=== PATIENT | female | born 1945 | race Asian ===

== ENCOUNTER 2016-06-25 19:56 | Inpatient (IN) | payer MEDICARE, OTHER ==
[~2016-06-25] VITALS: Ht 157.5 cm; Wt 47.6 kg
[2016-06-25] MEDS ORDERED: EPINEPHrine HCL 1 MG/1 ML AMP SC ONE (20:45)
[2016-06-25] MEDS ORDERED: FAMOTIDINE (10MG/ML) 2ML VL IV ONE (20:45)
[2016-06-25] MEDS ORDERED: SODIUM CHLORIDE 0.9% 500 ML IV ONE (20:45)
[2016-06-25] MEDS ORDERED: methylPREDNISolone SOD SUCC 125 MG/2 ML VL IV ONE (20:45)
[2016-06-25] MEDS ORDERED: diphenhdrAMINE HCL 50 MG/1 ML VL IV ONE (20:45)
[2016-06-25 20:48] LABS: Urine RBC None Seen /hpf (0 - 4)
[2016-06-25 20:56] LABS: Basophils # (auto) 0 uL; Basophils % (auto) 0.7 % (0.0-2.0); Eosinophils # (auto) 0.1 uL; Eosinophils % (auto) 1.4 % (0.0-7.0); Hemoglobin 12.9 g/dL (12.2-16.2); Lymphocytes # (auto) 1.4 uL; Lymphocytes % (auto) 39.2 % (10.0-50.0); Mean Corpuscular Hemoglobin 29.8 pg (28.0-32.0); Mean Corpuscular Hgb Conc. 33.1 g/dL (32.0-36.0); Mean Corpuscular Volume 90.2 fL (80.0-100.0); Monocytes # (auto) 0.2 uL; Monocytes % (auto) 6.5 % (0.0-12.0); Neutrophils # (auto) 1.9 uL; Neutrophils % (auto) 52.2 % (37.0-80.0); Platelet Count (auto) 260 10^3/uL (140-450); Red Cell Distribution Width 13.3 % (11.6-16.0); White Blood Cell 3.6 10^3/uL (4.4-10.8)
[2016-06-25 21:18] LABS: Albumin 3.6 g/dL (3.4-5.0); BUN/Creatinine Ratio 32.2; Bilirubin, Total 0.2 mg/dL (0.2-1.0); Calcium 8.6 mg/dL (8.5-10.1); Potassium 3.6 mmol/L (3.5-5.1); Total Protein 6.7 g/dL (6.4-8.2)
[2016-06-25 21:33] LABS: Urine Bilirubin Negative (Negative); Urine Blood Negative /uL (Negative); Urine Color Yellow (Yellow); Urine Glucose Normal (Normal); Urine Ketone Negative (Negative); Urine Nitrite Negative (Negative); Urine Urobilinogen Normal (Negative); Urine pH 7.5 (5.0-8.0)
[2016-06-25] MEDS ORDERED: SOD CHL 0.45% 1,000 ML IV ONE (23:45)
[2016-06-26] MEDS ORDERED: methylPREDNISolone SOD SUCC 125 MG/2 ML VL IV ONE (01:30)
[2016-06-26] MEDS ORDERED: SODIUM CHLORIDE 0.9% 1,000 ML IV SCH (03:40)
[2016-06-26] MEDS ORDERED: ACETAMINOPHEN 325 MG TAB PO PRN (03:45)
[2016-06-26] MEDS ORDERED: HYDROcodone-ACET 5/325MG TAB PO PRN (03:45)
[2016-06-26] MEDS ORDERED: ONDANSETRON HCL 4 MG/2 ML VIAL IV PRN (03:45)
[2016-06-26] MEDS ORDERED: ACETAMINOPHEN 325 MG TAB PO ONE (03:45)
[2016-06-26] MEDS ORDERED: diphenhdrAMINE HCL 25 MG CAP PO PRN (03:45)
[2016-06-26 05:21] VITALS: BP 101/67
[2016-06-26 08:30] VITALS: BP 106/75
[2016-06-26] MEDS ORDERED: FAMOTIDINE 20 MG TAB PO SCH (10:00)
[2016-06-26] MEDS: ENOXAPARIN SOD 30 MG/0.3 ML SYRINGE SC SCH ×2 (10:00→10:43)
[2016-06-26] MEDS ORDERED: methylPREDNISolone SOD SUCC 125 MG/2 ML VL IV SCH (10:00)
[2016-06-26 12:37] VITALS: BP 110/57
[2016-06-26 13:09] VITALS: BP 110/57
== END 2016-06-26 14:00 | disposition home or self-care (01) | DRG 916 ==
LOC: EDBD 19:56 → ER 20:01 → OVERFLOW 20:02 → WEST WING 06-26 04:14
PROVIDERS: ADMIT Nurse Practitioner; ATTEND Internal Medicine
DX: T78.3XXA Angioneurotic edema, initial encounter (principal); T78.40XA Allergy, unspecified, initial encounter; L29.9 Pruritus, unspecified
CPT/HCPCS: 36415; 80053; 81001; 85025; 96361; 96372; 96374; 96375; 96376; J0171; J3490

== ENCOUNTER 2016-10-16 17:41 | Emergency (ER) | payer MEDICARE ==
[~2016-10-16] VITALS: Ht 152.4 cm; Wt 47.6 kg
[2016-10-16] MEDS ORDERED: methylPREDNISolone SOD SUCC 125 MG/2 ML VL IM ONE (18:00)
[2016-10-16] MEDS ORDERED: diphenhdrAMINE HCL 25 MG CAP PO ONE (18:00)
[2016-10-16 18:23] VITALS: BP 132/73
== END 2016-10-16 18:38 | disposition home or self-care (01) ==
LOC: ER 17:47
DX: T78.40XA Allergy, unspecified, initial encounter (principal); R60.9 Edema, unspecified
CPT/HCPCS: 96372; 99283; J2930